=== PATIENT | female | born 2000 | race Caucasian/White ===

== ENCOUNTER 2024-07-26 10:28 | Emergency (ER) | payer SELFPAY ==
[2024-07-26 10:33] VITALS: BP 134/91
--- NOTE | 2024-07-26 10:40 | ED.GENMED ---
ED Provider Triage
<Christiane Zimmerman PA-C - Last Filed: 07/26/24 10:42>
-
Patient seen by provider in Triage?: Seen in Triage
Attestation: A medical screening examination has been initiated by a qualified medical provider. Based on the assessment performed at this time, it has been determined that an emergent medical condition may exist and the patient has been informed
that further medical evaluation and possible additional diagnostic testing may be needed.
HPI: 24yoF here with chest pain x several weeks. Feels like something is stuck in her throat. Also c/o intermittent R breast pain x several months. Noticed a lump yesterday. Denies redness/skin changes.
GENERAL: Alert , in no apparent distress
EYE: No visual abnormalities.
NECK: Trachea midline
ENT: No visible abnormalities.
LUNGS: No acute respiratory distress
NEUROLOGICAL: Alert and oriented
SKIN: Skin intact. No visible changes.
MUSCULOSKELETAL: Moving extremities normally
PSYCH: Normal and appropriate interaction.
This is a medical evaluation conducted in person to initiate diagnostic evaluation and provide initial therapeutics. Please see further documentation by the treating clinician.
Cardiac labs, EKG, and CXR ordered.
History of Present Illness
<Christiane Zimmerman PA-C - Last Filed: 07/26/24 10:42>
General
Chief Complaint: Chest Problem
Time Seen by Provider: 07/26/24 11:51
<Issac Bedolla DO - Last Filed: 07/26/24 16:23>
General
Source: patient
Exam Limitations: none
Nursing documentation reviewed up to this point in time: agreed with
History of Present Illness
History of Present Illness:
24-year-old female with right breast pain, for the past several months, chest pain for the past weeks. She has not seen a physician for this.
Past History
<Christiane Zimmerman PA-C - Last Filed: 07/26/24 10:42>
Past History
ED Past Medical History: Other (UTIs, pyelonephritis)
ED Past Surgical History: Appendectomy
Social History
Tobacco: Non-smoker
Alcohol: Occasional
Drug: None
Family History
Family History: Other (Mother has 'gallbladder problems')
Review of Systems
<Issac Bedolla DO - Last Filed: 07/26/24 16:23>
Review of Systems
Allergies reviewed?: Yes
All Other Systems: Not applicable
Constitutional: Reports no symptoms; Denies fever
EENT: Reports no symptoms
Respiratory: Reports no symptoms
Cardiac: Reports chest pain
ABD/GI: Reports no symptoms
: Reports no symptoms
Musculoskeletal: Reports no symptoms
Skin: Reports no symptoms
Neurological: Reports no symptoms
Endocrine: Reports no symptoms
Hematologic/Lymphatic: Reports no symptoms
Psychiatric: Reports no symptoms
Phy Exam
<Issac Bedolla DO - Last Filed: 07/26/24 16:23>
Physical Exam
Physical Exam:
Physical Exam
General: no apparent distress, not acutely ill
Neck: supple. no meningeal signs. normal posterior pharynx
Heart: s1/s2 regular rate and rhythm, no murmur. equal radial
pulses.
HEENT: Pupils equal round reactive to light, EOMI
breast: bilateral cystic masses felt at 10 oclock position
Lungs: no acute respiratory distress. clear bilaterally
Abdomen: normal bowel sounds. not tender. no CVAT
Neuro: alert and oriented. no focal neurological deficits cranial nerves II through XII intact
Skin: no rash
Psychiatric: well kept. interactive and cooperative
Extremities: no edema. no calf tenderness. negative homans. good distal pulses
Course
<Christiane Zimmerman PA-C - Last Filed: 07/26/24 10:42>
Orders/Labs/Results
Orders:
Orders
07/26/24 10:39
Electrocardiogram (*1) Urgent
Reason for Study: Chest Pain
EKG- Treatment ONCE
Test Result ONCE
CR Chest - 2 Views Urgent
Comment:
Reason For Exam: CP
07/26/24 10:53
Complete Blood Count/With Diff Urgent
Comprehensive Metabolic Panel Urgent
HCG, Serum Qualitative Screen Urgent
Troponin I Urgent
07/26/24 12:50
US Breast Bilateral Ltd WDC Urgent
Reason for Exam: BIPIN BREAST PAIN/ BILATERAL LUMPS
Abnormal Lab Results
07/26/24
10:53
RBC 4.13 L 10^6/uL
(4.20-5.40)
07/26/24 10:53
07/26/24 10:53
Vital Signs
Initial and Last Documented VS:
Initial Vital Signs
Temp Pulse Resp BP Pulse Ox
98.2 F 101 16 134/91 98
07/26/24 10:33 07/26/24 10:33 07/26/24 10:33 07/26/24 10:33 07/26/24 10:33
Last Documented Vital Signs
Temp Pulse Resp BP Pulse Ox
98.2 F 81 18 138/80 100
07/26/24 10:33 07/26/24 15:31 07/26/24 15:31 07/26/24 15:31 07/26/24 11:29
<Issac Bedolla, DO - Last Filed: 07/26/24 16:23>
Orders/Labs/Results
Orders:
Orders
07/26/24 10:39
Electrocardiogram (*1) Urgent
Reason for Study: Chest Pain
EKG- Treatment ONCE
Test Result ONCE
CR Chest - 2 Views Urgent
Comment:
Reason For Exam: CP
07/26/24 10:53
Complete Blood Count/With Diff Urgent
Comprehensive Metabolic Panel Urgent
HCG, Serum Qualitative Screen Urgent
Troponin I Urgent
07/26/24 12:50
US Breast Bilateral Ltd WDC Urgent
Reason for Exam: BIPIN BREAST PAIN/ BILATERAL LUMPS
Abnormal Lab Results
07/26/24
10:53
RBC 4.13 L 10^6/uL
(4.20-5.40)
07/26/24 10:53
07/26/24 10:53
Vital Signs
Initial and Last Documented VS:
Initial Vital Signs
Temp Pulse Resp BP Pulse Ox
98.2 F 101 16 134/91 98
07/26/24 10:33 07/26/24 10:33 07/26/24 10:33 07/26/24 10:33 07/26/24 10:33
Last Documented Vital Signs
Temp Pulse Resp BP Pulse Ox
98.2 F 81 18 138/80 100
07/26/24 10:33 07/26/24 15:31 07/26/24 15:31 07/26/24 15:31 07/26/24 11:29
<Issac Bedolla, DO - Last Filed: 07/26/24 16:23>
MDM/Problems Addressed
Differential Diagnosis Includes:
Breast mass, breast abscess, cyst
MDM/Problems Addressed:
24-year-old female with bilateral breast pain, chest pain. Suspect musculoskeletal cause. Ultrasounds normal of bilateral breast.
Chronic conditions affecting care: Other (SIBO)
<Issac Bedolla, DO - Last Filed: 07/26/24 16:23>
*Radiology
Radiology exam reviewed: radiology read reviewed (Chest x-ray normal, bilateral breast ultrasounds normal)
*Pulse Oximetry
Patient hypoxic: no
*EKG
Interpreted by ED Provider?: Yes
EKG Intrepretation Date: 07/26/24
EKG Intrepretation Time: 10:43
Interpretation: normal
Comparison EKG: no comparison EKG present
Heart Rate: 82
Rate: normal
Rhythm: sinus
Panacea: normal axis
Interval: normal interval
QRS Pattern: normal QRS
Ischemia: no ischemia
*Aba Therapist Interpretation
Rate: Aba Therapist- N/A
*Critical Care Note
Total Time (30-74mins, 75-104mins- exclusive of procedures): Not Applicable
<Issac Bedolla DO - Last Filed: 07/26/24 16:23>
Patient Management
Social determinants of health affecting care: Living situation
Escalation/DeEscalation of care consider admission/obs:
Admit not indicated
ED Attending Note
<Christiane Zimmerman PA-C - Last Filed: 07/26/24 10:42>
-
Portions of this chart may have been created with voice recognition software.� Occasional wrong word or��sound alike� substitutions may have occurred due to the inherent limitations of voice recognition software.
Discharge Plan
Departure
Patient Disposition: Home (Routine Discharge)
Date of Disposition: 07/26/24
Time of Disposition: 15:18
Patient with high blood pressure during this ER visit?: Yes
Condition: Good
Discharge Problem:
Chest pain, Acute pain of breast
Instructions: BLOOD PRESSURE
Prescriptions:
No Action
ciprofloxacin HCl 500 mg Tablet
500 mg PO BID Qty: 20 0RF
oxycodone 5 mg tablet
5 mg PO Q4H PRN (Reason: Pain) Qty: 10 0RF
levofloxacin 500 mg tablet
500 mg PO DAILY Qty: 10 0RF
Referrals:
[facility] [Outside] - Call in 1-3 days for appt
NONE,* [Family Provider] -
Renetta Hernandez, DO [Active] - Call in 1-3 days for appt
Interventions
Interventions:
*Risk Screen - Suicide Last Done: 07/26/24 10:33
*General Assessment Last Done: 07/26/24 11:29
*Neglect/Abuse Screening Last Done: 07/26/24 10:33
ED- Fall Risk Assessment Last Done: 07/26/24 11:29
*ED COVID-19 Vaccine History Last Done: 07/26/24 11:29
*Nursing Disposition Last Done: 07/26/24 15:34
ED- Cardiac Assessment Last Done: 07/26/24 11:29
ED- Pulmonary Assessment Last Done: 07/26/24 11:29
Discharge Date and Time
Discharge Date/Time: 07/26/24 15:35
Print Language: MALAY
[2024-07-26 11:02] LABS: % Basophils 0.7 % (0-2); % Immature Granulocytes 0.3 % (0-0.5); % Lymphocytes 41.1 % (20.5-51.1); % Monocytes 8.6 % (1.7-9.3); % Neutrophils 47.3 % (42.2-75.2); Absolute Eosinophils 0.1 10^3/uL (0-0.7); Absolute Lymphocytes 2.4 10^3/uL (1.2-3.4); Absolute Monocytes 0.5 10^3/uL (0.1-0.6); Absolute Neutrophils 2.8 10^3/uL (1.4-6.5); Hematocrit 37.4 % (37.0-47.0); Hemoglobin 12.6 g/dL (12.0-16.0); Mean Corp Hgb Conc. 33.7 g/dL (33.0-37.0); Mean Corpuscular Hgb 30.5 pg (27.0-31.0); Mean Corpuscular Volume 90.6 fL (81.0-99.0); Nucleated Red Blood Cells % 0 %; Platelet Count 220 10^3/uL (130-400); Red Blood Cell Count 4.13 10^6/uL (4.20-5.40); Red Cell Dist. Width 12.4 % (11.5-14.5); White Blood Cell Count 5.9 10^3/uL (4.8-10.8)
[2024-07-26 11:15] LABS: HCG, Serum Qualitative Screen Negative
[2024-07-26 11:17] LABS: ALT (SGPT) 16 U/L (0-35); AST (SGOT) 21 U/L (14-36); Albumin 4.8 g/dl (3.5-5.0); Alkaline Phosphatase 49 U/L (38-126); Blood Urea Nitrogen 12 mg/dl (7-17); Calcium 9.7 mg/dl (8.4-10.2); Carbon Dioxide 27 mmol/L (22-30); Chloride 103 mmol/L (98-107); Glucose 88 mg/dl (70-99); Potassium 4.5 mmol/L (3.5-5.1); Sodium 137 mmol/L (135-145); Total Bilirubin 0.3 mg/dl (0.2-1.3); Total Protein 7.4 g/dl (6.3-8.2); eGFR > 60.00
[2024-07-26 11:29] VITALS: BMI 20.8
[2024-07-26 11:29] LABS: Troponin I < 0.012 ng/ml
[2024-07-26 15:31] VITALS: BP 138/80
== END 2024-07-26 15:35 | disposition home or self-care (01) ==
LOC: EMR 10:28
PROVIDERS: Physician Assistant; EMERGENCY PHYSICIAN Emergency Medicine
DX: R07.9 Chest pain, unspecified (principal); N64.4 Mastodynia; Z90.49 Acquired absence of other specified parts of digestive tract
CPT/HCPCS: 99285; 71046; 76642; 80053; 84484; 84703; 85025; 93005